=== PATIENT | female | born 1995 | race Caucasian/White ===

== ENCOUNTER → 2018-11-09 12:01 | Outpatient (CLI) | payer OTHER, SELFPAY | PROVIDERS: Visit Provider Physician Assistant | DX: N89.8 Other specified noninflammatory disorders of vagina (principal) | CPT/HCPCS: 87210 ==

== ENCOUNTER → 2019-01-08 15:00 | Outpatient (CLI) | payer OTHER, SELFPAY | PROVIDERS: Visit Provider Nurse Practitioner | DX: B96.89 Other specified bacterial agents as the cause of diseases classified elsewhere (principal); N76.0 Acute vaginitis | CPT/HCPCS: 87210 ==

== ENCOUNTER → 2019-03-22 18:26 | Outpatient (CLI) | payer OTHER, SELFPAY | PROVIDERS: Visit Provider Physician Assistant | DX: R30.0 Dysuria (principal) | CPT/HCPCS: 87077; 87086; 87186 ==